=== PATIENT | female | born 1960 | race Caucasian/White ===

== ENCOUNTER → 2017-07-18 10:15 | Outpatient (CLI) | payer OTHER, SELFPAY ==
--- NOTE | 2017-07-18 | DI.MG.S_ITS ---
BILATERAL DIGITAL SCREENING MAMMOGRAM 3D/2D WITH CAD: 07/18/2017 CLINICAL: Routine screening. Family history of breast cancer. Comparison is made to exams dated: 05/23/2016 mammogram, 05/22/2015 mammogram, and 04/10/2014 mammogram - [facility]. The tissue of both breasts is heterogeneously dense. This may lower the sensitivity of mammography. Current study was also evaluated with a Computer Aided Detection (CAD) system. There is a benign cyst in the right breast. There also is a biopsy clip in the right breast. Additionally, there are post operative findings in the left breast. No significant masses, calcifications, or other findings are seen in either breast. There has been no significant interval change. IMPRESSION: BENIGN There is no mammographic evidence of malignancy. A 1 year screening mammogram is recommended. This exam was interpreted at Station ID: [id number]. NOTE: For mammograms, a report in lay terms will be sent to the patient. Approximately 15% of breast malignancies will not be visualized mammographically. In the management of a palpable breast mass, a negative mammogram must not discourage biopsy of a clinically suspicious lesion. Electronically Signed By: Pamela lopez/magan:07/18/2017 12:34:55 letter sent: Normal Exam ACR BI-RADS Category 2: Benign Finding(s) 3342F
== END ==
PROVIDERS: Family Provider Family Medicine; PCP Family Medicine; Visit Provider Family Medicine
DX: Z12.31 Encounter for screening mammogram for malignant neoplasm of breast (principal); Z80.3 Family history of malignant neoplasm of breast
CPT/HCPCS: 77063; 77067

== ENCOUNTER → 2018-09-24 14:09 | Outpatient (CLI) | payer OTHER, SELFPAY ==
--- NOTE | 2018-09-24 | DI.MG.S_ITS ---
BILATERAL DIGITAL SCREENING MAMMOGRAM 3D/2D WITH CAD: 09/24/2018 CLINICAL: Routine screening. Family history of breast cancer. Comparison is made to exams dated: 07/18/2017 mammogram, 05/23/2016 mammogram, and 05/22/2015 mammogram - [facility]. The tissue of both breasts is heterogeneously dense. This may lower the sensitivity of mammography. Current study was also evaluated with a Computer Aided Detection (CAD) system. There are benign post operative findings in the left breast. There also is a benign biopsy clip in the right breast. No significant masses, calcifications, or other findings are seen in either breast. There has been no significant interval change. IMPRESSION: There is no mammographic evidence of malignancy. A 1 year screening mammogram is recommended. This exam was interpreted at Station ID: [id number]. NOTE: For mammograms, a report in lay terms will be sent to the patient. Approximately 15% of breast malignancies will not be visualized mammographically. In the management of a palpable breast mass, a negative mammogram must not discourage biopsy of a clinically suspicious lesion. Electronically Signed By: Pamela lopez/magan:09/24/2018 17:04:58 letter sent: Normal Exam ACR BI-RADS Category 2: Benign Finding(s) 3342F
== END ==
PROVIDERS: PCP Family Medicine; Visit Provider Family Medicine
DX: Z12.31 Encounter for screening mammogram for malignant neoplasm of breast (principal); Z80.3 Family history of malignant neoplasm of breast
CPT/HCPCS: 77063; 77067

== ENCOUNTER → 2019-09-30 12:22 | Outpatient (CLI) | payer OTHER, SELFPAY ==
--- NOTE | 2019-09-30 | DI.MG.S_ITS ---
BILATERAL DIGITAL SCREENING MAMMOGRAM 3D/2D WITH CAD: 09/30/2019 CLINICAL: Family history of breast cancer. Routine screening. Comparison is made to exams dated: 09/24/2018 mammogram, 07/18/2017 mammogram, and 05/23/2016 mammogram - [facility]. The tissue of both breasts is heterogeneously dense. This may lower the sensitivity of mammography. Current study was also evaluated with a Computer Aided Detection (CAD) system. There are benign calcifications in both breasts. There also is a biopsy clip in the right breast. Additionally, there are benign post operative findings in the left breast. No significant masses, calcifications, or other findings are seen in either breast. There has been no significant interval change. IMPRESSION: BENIGN There is no mammographic evidence of malignancy. A 1 year screening mammogram is recommended. This exam was interpreted at Station ID: [id number]. NOTE: For mammograms, a report in lay terms will be sent to the patient. Approximately 15% of breast malignancies will not be visualized mammographically. In the management of a palpable breast mass, a negative mammogram must not discourage biopsy of a clinically suspicious lesion. Electronically Signed By: William carlos/magan:09/30/2019 17:20:54 letter sent: Normal Exam ACR BI-RADS Category 2: Benign Finding(s) 3342F
== END ==
PROVIDERS: PCP Family Medicine; Referring Provider Family Medicine; Visit Provider Family Medicine
DX: Z12.31 Encounter for screening mammogram for malignant neoplasm of breast (principal); Z80.3 Family history of malignant neoplasm of breast
CPT/HCPCS: 77063; 77067

== ENCOUNTER → 2020-03-03 10:51 | Outpatient (CLI) | payer OTHER, SELFPAY ==
--- NOTE | 2020-03-03 | DI.RAD.S_ITS ---
PROCEDURE: XR LUMBAR SPINE 2-3V INDICATIONS: Radiculopathy, lumbar region TECHNIQUE: 3 views of the lumbar spine were acquired. COMPARISON: None. FINDINGS: Bones: 5 [id number] vertebrae are present. There is normal bony alignment. No vertebral body compression fractures. No suspicious bony lesions. Soft tissues: Overlying bowel gas pattern is normal. No suspicious soft tissue calcifications. IMPRESSION: No significant degenerative change is found. No trauma seen. Dictated by: Quique Malhotra M.D. on 03/03/2020 at 12:14 Approved by: Quique Malhotra M.D. on 03/03/2020 at 12:14
== END ==
PROVIDERS: PCP Family Medicine; Referring Provider Family Medicine; Visit Provider Family Medicine
DX: M54.16 Radiculopathy, lumbar region (principal)
CPT/HCPCS: 72100

== ENCOUNTER → 2020-09-14 07:54 | Outpatient (CLI) | payer OTHER, SELFPAY ==
--- NOTE | 2020-09-14 | DI.US.S_ITS ---
PROCEDURE: US PELVIC COMPLETE INDICATIONS: DUB TECHNIQUE: Real-time scanning was performed of the pelvic organs, with image documentation. Additional endovaginal scanning was necessary due to incomplete visualization of the adnexal and endometrial structures by transabdominal scanning. COMPARISON: [facility], , PELVIC COMPLETE, 08/17/2012, 9:17. FINDINGS: Uterus: Uterus is normal in size at 8.3 x 4.0 x 6.9 cm. The endometrium measures 15 mm in combined thickness. Ovaries: Ovaries not identified. No adnexal masses seen. Other: No pathologic free abdominal or pelvic fluid. IMPRESSION: Endometrial complex upper limits of normal in thickness for a premenopausal female. Recommend clinical correlation and follow-up if indicated. Dictated by: Rafael LINCOLN Interpreted: Quique Malhotra MD on 09/16/2020 at 10:46 Transcribed by: GAUTAM on 09/16/2020 at 10:47 Approved by: Quique Malhotra M.D. on 09/16/2020 at 11:33
== END ==
PROVIDERS: PCP Family Medicine; Referring Provider Family Medicine; Visit Provider Family Medicine
DX: N92.1 Excessive and frequent menstruation with irregular cycle (principal)
CPT/HCPCS: 76830; 76856

== ENCOUNTER → 2020-10-31 12:30 | Outpatient (CLI) | payer OTHER, SELFPAY ==
--- NOTE | 2020-10-31 12:32 | DI.MG.S_ITS ---
BILATERAL DIGITAL SCREENING MAMMOGRAM 3D/2D WITH CAD: 10/31/2020 CLINICAL: Routine screening. Family history of breast cancer. Comparison is made to exams dated: 09/30/2019 mammogram, 09/24/2018 mammogram, and 07/18/2017 mammogram - [facility]. The tissue of both breasts is heterogeneously dense. This may lower the sensitivity of mammography. Current study was also evaluated with a Computer Aided Detection (CAD) system. There are benign calcifications in both breasts. There also is a biopsy clip in the right breast. Additionally, there are benign post operative findings in the left breast. There is a 1.7 cm round asymmetry with a circumscribed margin in the right breast central to the nipple middle depth. This is increased in size. No other significant masses, calcifications, or other findings are seen in either breast. IMPRESSION: INCOMPLETE: NEEDS ADDITIONAL IMAGING EVALUATION The 1.7 cm round asymmetry in the right breast most likely is a cyst but is significantly larger compared to last year's mammogram and therefore an ultrasound is recommended to confirm that it is a cyst and there are no associated concerning findings. This exam was interpreted at Station ID: [id number]. NOTE: For mammograms, a report in lay terms will be sent to the patient. Approximately 15% of breast malignancies will not be visualized mammographically. In the management of a palpable breast mass, a negative mammogram must not discourage biopsy of a clinically suspicious lesion. Electronically Signed By: Gregory Herbert acr/:11/02/2020 07:59:30 Entry: - 11/02/2020 09:20:50 letter sent: Need Ultrasound ACR BI-RADS Category 0: Incomplete 3340F
== END ==
PROVIDERS: PCP Family Medicine; Referring Provider Family Medicine; Visit Provider Family Medicine
DX: Z12.31 Encounter for screening mammogram for malignant neoplasm of breast (principal); Z80.3 Family history of malignant neoplasm of breast
CPT/HCPCS: 77063; 77067

== ENCOUNTER → 2020-11-19 12:19 | Outpatient (CLI) | payer OTHER, SELFPAY ==
--- NOTE | 2020-11-19 | DI.RAD.S_ITS ---
PROCEDURE: XR FOOT LT MIN 3V INDICATIONS: LEFT FOOT PAIN TECHNIQUE: 3 views of the foot were acquired. COMPARISON: [facility], , FOOT 3V RIGHT, 12/18/2006, 17:07. FINDINGS: Bones: No fractures or dislocations. No suspicious bony lesions. Minimal scattered IP narrowing. Minimal calcaneal spur. Soft tissues: No tibiotalar joint effusion. Achilles tendon appears normal. IMPRESSION: Early degenerative change. Dictated by: Kati Cowan M.D. on 11/19/2020 at 15:16 Approved by: Kati Cowan M.D. on 11/19/2020 at 15:17
== END ==
PROVIDERS: PCP Family Medicine; Referring Provider Family Medicine; Visit Provider Family Medicine
DX: M79.672 Pain in left foot (principal)
CPT/HCPCS: 73630

== ENCOUNTER → 2020-11-23 12:32 | Outpatient (CLI) | payer OTHER, SELFPAY ==
--- NOTE | 2020-11-23 12:33 | DI.US.S_ITS ---
LIMITED ULTRASOUND OF RIGHT BREAST: 11/23/2020 CLINICAL: Patient returns today to evaluate a focal asymmetry in the right breast. Comparison is made to exams dated: 10/31/2020 mammogram, 09/24/2018 mammogram, 09/30/2019 mammogram, 07/18/2017 mammogram, 05/23/2016 mammogram, and 05/22/2015 mammogram - [facility]. Ultrasound of the right breast retroareolar was performed. There is a benign 1.7 cm simple cyst in the right breast central to the nipple middle depth. No suspicious abnormality seen sonographically in the right breast. IMPRESSION: BENIGN There is no sonographic evidence of malignancy. The 1.7 cm simple cyst in the right breast is benign. Return to annual mammogram screening schedule is recommended. This exam was interpreted at Station ID: [id number]. Electronically Signed By: Samuel Bullock M.D. jr/:11/23/2020 13:18:13 letter sent: Normal Exam Ultrasound BI-RADS: 2 Benign
== END ==
PROVIDERS: PCP Family Medicine; Referring Provider Family Medicine; Visit Provider Family Medicine
DX: N60.01 Solitary cyst of right breast (principal); R92.8 Other abnormal and inconclusive findings on diagnostic imaging of breast
CPT/HCPCS: 76642

== ENCOUNTER → 2021-11-01 14:07 | Outpatient (CLI) | payer OTHER, SELFPAY | PROVIDERS: PCP Family Medicine; Referring Provider Family Medicine; Visit Provider Family Medicine | DX: M85.89 Other specified disorders of bone density and structure, multiple sites (principal); M81.0 Age-related osteoporosis without current pathological fracture | CPT/HCPCS: 77080 ==

== ENCOUNTER → 2021-11-08 15:03 | Outpatient (CLI) | payer OTHER, SELFPAY ==
--- NOTE | 2021-11-08 15:04 | DI.MG.S_ITS ---
BILATERAL DIGITAL SCREENING MAMMOGRAM 3D/2D WITH CAD: 11/08/2021 CLINICAL: Routine screening. Family history of breast cancer. Comparison is made to exams dated: 10/31/2020 mammogram, 09/30/2019 mammogram, 09/24/2018 mammogram, 11/23/2020 ultrasound, and 07/18/2017 mammogram - [facility]. Both breasts are heterogeneously dense, which may obscure small masses (category c / 51-75% glandular tissue). Current study was also evaluated with a Computer Aided Detection (CAD) system. There is a benign cyst in the right breast whish is slightly increased in size. There also are benign calcifications in both breasts. Additionally, there is a biopsy clip in the right breast. Additionally, there also are benign post operative findings in the left breast. No significant masses, calcifications, or other findings are seen in either breast. IMPRESSION: BENIGN There is no mammographic evidence of malignancy. A 1 year screening mammogram is recommended. Based on Tyrer-Cuzick model (a risk assessment model), the patient's lifetime risk is 37.5% and her 10 year risk is 16.0%. If a patient has an elevated risk, a more comprehensive evaluation should be considered and/or a referral to a genetic counselor. The [place] [employer], [place] [employer], and NCCN Guidelines advise the consideration of Breast MRI as an adjunct to screening mammography in patients whose Lifetime risk to develop breast cancer is 20% or higher. This exam was interpreted at Station ID: [id number]. NOTE: For mammograms, a report in lay terms will be sent to the patient. Approximately 15% of breast malignancies will not be visualized mammographically. In the management of a palpable breast mass, a negative mammogram must not discourage biopsy of a clinically suspicious lesion. Electronically Signed By: Artemio Pace M.D. slc/:11/10/2021 08:26:37 letter sent: Normal Exam ACR BI-RADS Category 2: Benign Finding(s) 3342F
== END ==
PROVIDERS: PCP Family Medicine; Referring Provider Family Medicine; Visit Provider Family Medicine
DX: Z12.31 Encounter for screening mammogram for malignant neoplasm of breast (principal); Z80.3 Family history of malignant neoplasm of breast
CPT/HCPCS: 77063; 77067

== ENCOUNTER → 2022-11-07 10:35 | Outpatient (CLI) | payer OTHER, SELFPAY ==
--- NOTE | 2022-11-07 | DI.RAD.S_ITS ---
Bone Density Report Name: MADISYN PACHECO Age: 61 Sex: Female Ethnicity: White Date of : 1960 Indication: osteopenia; Referring Provider: EUSEBIO MCHUGH Study: Bone densitometry was performed. Exam Date: November 07, 2022 Accession number: [id number] Bone Density: Region BMD T-score Z-score Classification AP Spine(L1-L4) 0.853 -1.8 -0.4 Osteopenia Femoral Neck (Left) 0.569 -2.5 -1.2 Osteoporosis Total Hip (Left) 0.729 -1.7 -0.8 Osteopenia Femoral Neck (Right) 0.559 -2.6 -1.3 Osteoporosis Total Hip (Right) 0.711 -1.9 -0.9 Osteopenia Total Hip Mean 0.720 -1.8 -0.9 Osteopenia World Health Organization criteria for BMD impression classify patients as: Normal (T-score at or above -1.0), Osteopenia (T-score between -1.0 and -2.5), or Osteoporosis (T-score at or below -2.5). 10-year Fracture Risk: FRAX not reported because: Some T-score for Spine Total or Hip Total or Femoral Neck at or below -2.5 Previous Exams: -- Region Exam Age BMD T-score BMD Change BMD Change Date g/cm2 vs Baseline vs Previous -- AP Spine (L1-L4) 11/07/2022 61 0.853 -1.8 -0.023 (-2.7%)* -0.023 (-2.7%)* 11/01/2021 60 0.876 -1.6 Total Hip(Left) 11/07/2022 61 0.729 -1.7 0.027 (3.8%) 0.027 (3.8%) 11/01/2021 60 0.702 -2.0 Total Hip(Right) 11/07/2022 61 0.711 -1.9 0.004 (0.5%) 0.004 (0.5%) 11/01/2021 60 0.708 -1.9 -- *Denotes significance at 95% confidence level, LSC for AP Spine = 0.022 g/cm2, LSC for Total Hip = 0.027 g/cm2 Impression: The patient has osteoporosis, based on the Right Femoral Neck T-score. The BMD for the AP Spine (L1-L4) decreased, changing by -2.7% since the last DXA exam. Discussion: INCREASED RISK OF FRACTURE. BONE DENSITY IS UNDESIRABLY LOW AT ONE OR MORE SKELETAL SITES, CONSISTENT WITH POSTMENOPAUSAL OSTEOPOROSIS. This patient's lowest T-score meets the World Health Organization's (WHO) criteria for osteoporosis at one or more sites (T-score -2.5 or below). In untreated patients, the risk of osteoporotic fracture increases approximately two-fold for each 1.0 SD decrease in T-score. Low bone density is not the only risk factor for fracture; also consider factors such as patient's age, frailty or poor health, risk of falling, risk of injury, previous osteoporotic fracture, family history of osteoporosis, cigarette smoking, low body weight, etc. Not everyone with low bone mineral density has osteoporosis; osteomalacia and other metabolic bone disorders should also be considered. Patients who have osteoporosis should be evaluated for specific diseases and conditions (secondary causes) that may cause or contribute to bone loss. The [place] [employer]ocrinologists (AACE) and National Osteoporosis Foundation (NOF) recommend pharmacologic intervention for all postmenopausal women whose T-score is in this range. The patient should follow a healthful lifestyle (good nutrition with adequate calcium and vitamin D, and appropriate weight-bearing exercise). Follow-Up: Consider a repeat BMD and Vertebral Fracture Assessment (VFA) exam in 2 years or sooner if medically necessary, to reassess this patient's status. Reported by: SALLIE BORDEN M.D on 11/07/2022 11:20:00 AM.
== END ==
PROVIDERS: PCP Family Medicine; Referring Provider Family Medicine; Visit Provider Family Medicine
DX: M81.0 Age-related osteoporosis without current pathological fracture (principal); Z78.0 Asymptomatic menopausal state
CPT/HCPCS: 77080

== ENCOUNTER → 2022-11-21 11:36 | Outpatient (CLI) | payer OTHER, SELFPAY ==
--- NOTE | 2022-11-21 | DI.MG.S_ITS ---
BILATERAL DIGITAL SCREENING MAMMOGRAM 3D/2D WITH CAD: 11/21/2022 CLINICAL: Routine screening. Family history of breast cancer. Comparison is made to exams dated: 11/08/2021 mammogram, 10/31/2020 mammogram, and 09/30/2019 mammogram - [facility]. Both breasts are heterogeneously dense, which may obscure small masses (category c / 51-75% glandular tissue). Current study was also evaluated with a Computer Aided Detection (CAD) system. There is a benign cyst in the right breast. There also are benign calcifications in both breasts. Additionally, there is a biopsy clip in the right breast. Additionally, there also are benign post operative findings in the left breast. No significant masses, calcifications, or other findings are seen in either breast. There has been no significant interval change. IMPRESSION: BENIGN There is no mammographic evidence of malignancy. A 1 year screening mammogram is recommended. Based on Tyrer-Cuzick model (a risk assessment model), the patient's lifetime risk is 37.7% and her 10 year risk is 16.8%. If a patient has an elevated risk, a more comprehensive evaluation should be considered and/or a referral to a genetic counselor. The [place] [employer], [employer], and NCCN Guidelines advise the consideration of Breast MRI as an adjunct to screening mammography in patients whose Lifetime risk to develop breast cancer is 20% or higher. This exam was interpreted at Station ID: [id number]. NOTE: For mammograms, a report in lay terms will be sent to the patient. Approximately 15% of breast malignancies will not be visualized mammographically. In the management of a palpable breast mass, a negative mammogram must not discourage biopsy of a clinically suspicious lesion. Electronically Signed By: Ivan castrejon/magan:11/21/2022 12:47:38 letter sent: Normal Exam ACR BI-RADS Category 2: Benign Finding(s) 3342D
== END ==
PROVIDERS: PCP Family Medicine; Referring Provider Family Medicine; Visit Provider Family Medicine
DX: Z12.31 Encounter for screening mammogram for malignant neoplasm of breast (principal); Z80.3 Family history of malignant neoplasm of breast
CPT/HCPCS: 77063; 77067

== ENCOUNTER → 2023-01-11 08:48 | Outpatient (CLI) | payer OTHER, SELFPAY ==
--- NOTE | 2023-01-11 | DI.US.S_ITS ---
LIMITED ULTRASOUND OF RIGHT BREAST: 01/11/2023 CLINICAL: Palpable right breast lump. Comparison is made to exams dated: 01/11/2023 mammogram, 11/21/2022 mammogram, 11/08/2021 mammogram, 11/23/2020 ultrasound, and 10/31/2020 mammogram - [facility]. Color flow and real-time ultrasound of the right breast 12-1 o'clock region were performed. Frazier scale images of the real-time examination were reviewed. There is a benign 1.8 cm x 1.7 cm x 1.5 cm oval simple cyst in the right breast at 1 o'clock anterior depth 1 cm from the nipple. This oval simple cyst is anechoic. This abnormality is increased in size and correlates as palpated and with mammography findings. Color flow imaging demonstrates that there is no vascularity present. There also is a benign 0.6 cm oval cyst in the right breast at 1 o'clock anterior depth 1 cm from the nipple. This oval cyst is anechoic. This abnormality is not significantly changed. Color flow imaging demonstrates that there is no vascularity present. IMPRESSION: BENIGN There is no sonographic evidence of malignancy. The 1.8 cm simple cyst in the right breast at 1 o'clock anterior depth is benign. The 0.6 cm simple cyst in the right breast at 1 o'clock anterior depth is benign. Exam findings were conveyed to the patient. Patient is advised to monitor for significant change. Clinical follow-up as needed. A 1 year screening mammogram is recommended. 11/22/2023 screening mammogram. This exam was interpreted at Station ID: [id number]. Electronically Signed By: Artemio Pace M.D. slc/:01/11/2023 09:48:43 letter sent: Normal Exam Ultrasound BI-RADS: 2 Benign
--- NOTE | 2023-01-11 | DI.MG.S_ITS ---
UNILATERAL RIGHT DIGITAL DIAGNOSTIC MAMMOGRAM 3D/2D: 01/11/2023 CLINICAL: Palpable right breast lump. Comparison is made to exams dated: 11/21/2022 mammogram, 11/08/2021 mammogram, 10/31/2020 mammogram, 11/23/2020 ultrasound, 09/30/2019 mammogram, and 09/24/2018 mammogram - [facility]. The right breast is heterogeneously dense, which may obscure small masses (category c / 51-75% glandular tissue). There is a stable oval mass in the right breast at 12 o'clock anterior depth. This likely correlates as palpated. No other significant masses or calcifications are seen in the breast. IMPRESSION: INCOMPLETE: NEEDS ADDITIONAL IMAGING EVALUATION The stable oval mass in the right breast is indeterminate. A targeted ultrasound is recommended and will immediately follow. Based on Tyrer-Cuzick model (a risk assessment model), the patient's lifetime risk is 37.7% and her 10 year risk is 16.8%. If a patient has an elevated risk, a more comprehensive evaluation should be considered and/or a referral to a genetic counselor. The [place] [employer], [employer] [employer], and NCCN Guidelines advise the consideration of Breast MRI as an adjunct to screening mammography in patients whose Lifetime risk to develop breast cancer is 20% or higher. This exam was interpreted at Station ID: [id number]. NOTE: For mammograms, a report in lay terms will be sent to the patient. Approximately 15% of breast malignancies will not be visualized mammographically. In the management of a palpable breast mass, a negative mammogram must not discourage biopsy of a clinically suspicious lesion. Electronically Signed By: Artemio Pace M.D. slc/:01/11/2023 09:31:23 ACR BI-RADS Category 0: Incomplete 3340F
== END ==
PROVIDERS: PCP Family Medicine; Referring Provider Family Medicine; Visit Provider Family Medicine
DX: R92.8 Other abnormal and inconclusive findings on diagnostic imaging of breast (principal); N60.01 Solitary cyst of right breast
CPT/HCPCS: 76642; 77065; G0279

== ENCOUNTER → 2023-08-14 13:42 | Outpatient (CLI) | payer OTHER, SELFPAY ==
--- NOTE | 2023-08-14 13:44 | DI.CT.S_ITS ---
PROCEDURE: CT KIDNEY URETER BLADDER (KUB) INDICATIONS: Calculus of kidney/ gross hematuria TECHNIQUE: Axial sections were acquired from the lung bases to the pubic symphysis. Coronal and sagittal reformats were performed. For radiation dose reduction, the following was used: automated exposure control, adjustment of mA and/or kV according to patient size. COMPARISON: None. FINDINGS: Image quality: Diagnostic. Lower Chest: No significant findings. URINARY: Right Kidney: Four nonobstructing intrarenal lower pole calculi. The largest measures 4 mm in greatest diameter. There is no hydronephrosis or contour deforming mass. Right Ureter: No hydroureter, ureteral calculus, or periureteric inflammation. Left Kidney: No intrarenal calculi, hydronephrosis, or contour deforming mass. Left Ureter: No hydroureter, ureteral calculus, or periureteric inflammation. Bladder: Normal wall thickness. No stones. ABDOMEN: Liver: 2.6 cm microlobulated cystic mass in segment six suggesting cyst or hemangioma. Subcentimeter cyst in segment two. No visible solid mass. Gallbladder: Dependent subcentimeter gallstone. Gallbladder is otherwise partially decompressed and has a normal CT appearance. Biliary ducts: No biliary dilation. Pancreas: Normal size and morphology without visible ductal dilatation or inflammation. Spleen: Size is within normal limits. Adrenal Glands: No adrenal nodules. Stomach and Bowel: Stomach and small bowel loops are normal caliber. Sigmoid colon diverticulosis. Normal appendix. Peritoneum: No free fluid or free air. Ventral Wall: No hernia. Abdominal Nodes: No enlarged retroperitoneal or mesenteric lymph nodes. Vessels: Aorta and inferior vena cava are normal in size. PELVIS: Pelvic Organs: Uterus and ovaries are normal. Pelvic Nodes: Unremarkable. Miscellaneous: No inguinal hernias are seen. Bones: Unremarkable. IMPRESSION: A few nonobstructing right lower pole intrarenal calculi. No evidence of obstructive uropathy. Benign low-density liver lesions. Sigmoid colon diverticulosis. Dictated by: Ghazala Payan M.D. on 08/14/2023 at 22:08 Approved by: Ghazala Payan M.D. on 08/14/2023 at 22:16
== END ==
PROVIDERS: PCP Family Medicine; Referring Provider Family Medicine; Visit Provider Family Medicine
DX: N20.0 Calculus of kidney (principal); K76.9 Liver disease, unspecified; K57.30 Diverticulosis of large intestine without perforation or abscess without bleeding
CPT/HCPCS: 74176

== ENCOUNTER → 2023-09-04 10:51 | Outpatient (CLI) | payer OTHER, SELFPAY ==
--- NOTE | 2023-09-04 | DI.RAD.S_ITS ---
PROCEDURE: XR ELBOW RT MIN 3V INDICATIONS: RIGHT ELBOW PAIN TECHNIQUE: 3 views of the elbow were acquired. COMPARISON: None. FINDINGS: Bones: No fractures or dislocations. No suspicious bony lesions. Soft tissues: No abnormally displaced fat pads of the elbow IMPRESSION: No acute bony abnormality or significant joint effusion. Dictated by: Cuauhtemoc Spangler M.D. on 09/04/2023 at 15:23 Approved by: Cuauhtemoc Spangler M.D. on 09/04/2023 at 15:23
== END ==
PROVIDERS: PCP Family Medicine; Referring Provider Registered Nurse; Visit Provider Registered Nurse
DX: M70.21 Olecranon bursitis, right elbow (principal)
CPT/HCPCS: 73080

== ENCOUNTER → 2023-11-27 15:24 | Outpatient (CLI) | payer OTHER, SELFPAY ==
--- NOTE | 2023-11-27 15:25 | DI.MG.S_ITS ---
BILATERAL DIGITAL SCREENING MAMMOGRAM 3D/2D WITH CAD: 11/27/2023 CLINICAL: Routine screening. Family history of breast cancer. Comparison is made to exams dated: 11/21/2022 mammogram, 11/08/2021 mammogram, and 10/31/2020 mammogram - [facility]. The breasts are heterogeneously dense, which may obscure small masses (category c / 51-75% glandular tissue). Current study was also evaluated with a Computer Aided Detection (CAD) system. There is a developing an irregular asymmetry with grouped dystrophic heterogeneous calcifications in the left breast at 4 o'clock middle depth. This is increased in number of calcifications. There also are grouped fine heterogeneous calcifications in the left breast at 11 o'clock posterior depth. These are increased in number of calcifications. No other significant masses, calcifications, or other findings are seen in either breast. IMPRESSION: INCOMPLETE: NEED ADDITIONAL IMAGING EVALUATION The developing irregular asymmetry in the left breast at 4 o'clock middle depth is indeterminate. Additional views with possible ultrasound are recommended. The grouped fine heterogeneous calcifications in the left breast at 11 o'clock posterior depth are indeterminate. Additional views with possible ultrasound are recommended. Based on Tyrer-Cuzick model (a risk assessment model), the patient's lifetime risk is 29.8% and her 10 year risk is 13.3%. If a patient has an elevated risk, a more comprehensive evaluation should be considered and/or a referral to a genetic counselor. The [place] [employer], [employer], and NCCN Guidelines advise the consideration of Breast MRI as an adjunct to screening mammography in patients whose Lifetime risk to develop breast cancer is 20% or higher. This exam was interpreted at Station ID: [id number]. NOTE: For mammograms, a report in lay terms will be sent to the patient. Approximately 15% of breast malignancies will not be visualized mammographically. In the management of a palpable breast mass, a negative mammogram must not discourage biopsy of a clinically suspicious lesion. Electronically Signed By: Ghazala daily/:11/28/2023 11:51:11 letter sent: Additional Imaging Needed ACR BI-RADS Category 0: Incomplete: Need Additional Imaging Evaluation
== END ==
PROVIDERS: PCP Family Medicine; Referring Provider Family Medicine; Visit Provider Family Medicine
DX: Z12.31 Encounter for screening mammogram for malignant neoplasm of breast (principal); Z80.3 Family history of malignant neoplasm of breast; R92.333 Mammographic heterogeneous density, bilateral breasts
CPT/HCPCS: 77063; 77067

== ENCOUNTER → 2024-01-01 13:12 | Outpatient (CLI) | payer OTHER, SELFPAY ==
--- NOTE | 2024-01-01 | DI.MG.S_ITS ---
UNILATERAL LEFT DIGITAL DIAGNOSTIC MAMMOGRAM 3D/2D WITH ADDITIONAL VIEWS: 01/01/2024 CLINICAL: Additional evaluation requested from prior study. Comparison is made to exams dated: 11/27/2023 mammogram, 11/21/2022 mammogram, 11/08/2021 mammogram, 01/11/2023 mammogram, 10/31/2020 mammogram, and 09/30/2019 mammogram - [facility]. The breasts are heterogeneously dense, which may obscure small masses (category c / 51-75% glandular tissue). There are stable post surgical changes in the left breast. There is an oval asymmetry with obscured margins measuring approximately 7 mm with associated dystrophic calcifications in the lower outer quadrant at 4 o'clock middle depth. This finding corresponds to finding seen on recent screening mammogram. There are similar appearing grouped dystrophic calcifications at 9 o'clock posterior depth spanning 6 mm. This finding corresponds to previously described calcifications at 11 o'clock position on recent screening mammogram. No other significant masses, calcifications, or other findings are seen in the breast. IMPRESSION: INCOMPLETE: NEED ADDITIONAL IMAGING EVALUATION 1) Left breast 7 mm focal asymmetry with associated calcifications at 4 o'clock position. An ultrasound is recommended for further evaluation and is scheduled to immediately follow this examination. 2) Left breast 6 mm grouped dystrophic calcifications at 9 o'clock posterior depth. Defer management pending left breast ultrasound. Based on Tyrer-Cuzick model (a risk assessment model), the patient's lifetime risk is 29.8% and her 10 year risk is 13.3%. If a patient has an elevated risk, a more comprehensive evaluation should be considered and/or a referral to a genetic counselor. The [place] [employer], [employer] [place] [employer], and NCCN Guidelines advise the consideration of Breast MRI as an adjunct to screening mammography in patients whose Lifetime risk to develop breast cancer is 20% or higher. This exam was interpreted at Station ID: [id number]. NOTE: For mammograms, a report in lay terms will be sent to the patient. Approximately 15% of breast malignancies will not be visualized mammographically. In the management of a palpable breast mass, a negative mammogram must not discourage biopsy of a clinically suspicious lesion. Electronically Signed By: Emily Olmos M.D., Ph.D. eb/:01/01/2024 14:54:54 letter sent: Additional Imaging Needed ACR BI-RADS Category 0: Incomplete: Need Additional Imaging Evaluation
--- NOTE | 2024-01-01 | DI.US.S_ITS ---
LIMITED ULTRASOUND OF LEFT BREAST: 01/01/2024 CLINICAL: Patient returns today to evaluate a focal asymmetry in the left breast. Comparison is made to exams dated: 01/01/2024 mammogram, 11/27/2023 mammogram, 11/21/2022 mammogram, 11/08/2021 mammogram, 10/31/2020 mammogram, and 09/30/2019 mammogram - [facility]. Color flow and real-time ultrasound of the left breast 4 o'clock region were performed. Frazier scale images of the real-time examination were reviewed. There is an oval hypoechoic mass with circumscribed margins at 4 o'clock, 4 cm from the nipple measuring 0.9 x 0.6 x 0.7 cm. Dystrophic calcifications are seen at the anterior aspect of the mass. Color-flow imaging demonstrates no vascularity is present. This finding corresponds to the mammographic finding. IMPRESSION: SUSPICIOUS 1) Left breast 0.9 cm oval circumscribed mass with dystrophic calcifications at 4 o'clock position. Finding likely represents a fibroadenoma and is at low suspicion for malignancy. Recommend ultrasound-guided core biopsy. 2) Left breast 0.6 cm group dystrophic calcifications at 9 o'clock posterior depth with similar morphology to the calcifications seen at 4 o'clock position. Defer management pending biopsy results. Findings and recommendations were discussed with the patient by Dr. Varela during today's examination. This exam was interpreted at Station ID: [id number]. Electronically Signed By: Emily Olmos M.D., Ph.D. eb/:01/01/2024 15:01:27 letter sent: Biopsy Required ACR BI-RADS Category 4A: Suspicious
== END ==
PROVIDERS: PCP Family Medicine; Referring Provider Family Medicine; Visit Provider Family Medicine
DX: R92.8 Other abnormal and inconclusive findings on diagnostic imaging of breast; R92.1 Mammographic calcification found on diagnostic imaging of breast; R92.333 Mammographic heterogeneous density, bilateral breasts; N63.23 Unspecified lump in the left breast, lower outer quadrant
CPT/HCPCS: 76642; 77065; G0279

== ENCOUNTER → 2024-01-26 | Outpatient (CLI) | payer OTHER, SELFPAY ==
--- NOTE | 2024-01-26 12:42 | DI.US.S_ITS ---
PROCEDURE: US BX BREAST PERC W VAC DEVICE COMPARISON: None. INDICATIONS: LUMP IN LEFT BREAST FINDINGS: The left breast mass previously identified under ultrasound was again seen at 4:00 a.m. 4 cm from the nipple and 4 passes were made from the deep edge of the mass with the biopsy notch facing the lesion on each pass. Following the biopsies the biopsy needle was removed and a biopsy clip marker was placed within the mass. IMPRESSION: Ultrasound-guided left breast mass biopsy and clip placement. Dictated by: Gene Estrada M.D. on 01/26/2024 at 16:18 Approved by: Gene Estrada M.D. on 01/26/2024 at 16:21
--- NOTE | 2024-01-26 12:43 | DI.MG.S_ITS ---
UNILATERAL LEFT DIGITAL DIAGNOSTIC MAMMOGRAM 3D/2D: 01/26/2024 CLINICAL: Left post clip placement. Comparison is made to exams dated: 01/01/2024 ultrasound, 01/01/2024 mammogram, and 11/27/2023 mammogram - [facility]. The breasts are heterogeneously dense, which may obscure small masses (category c / 51-75% glandular tissue). Post biopsy mammogram demonstrates biopsy clip approximately 3 mm posteromedial from the targeted mass. IMPRESSION: POST PROCEDURE MAMMOGRAM FOR MARKER PLACEMENT Post biopsy mammogram demonstrates biopsy clip approximately 3 mm posteromedial from the targeted mass. Please see separately dictated ultrasound guided biopsy report for additional details and pathology. Future imaging is recommended as follows: 07/27/2024 left mammogram and an ultrasound. Based on Tyrer-Cuzick model (a risk assessment model), the patient's lifetime risk is 29.8% and her 10 year risk is 13.3%. If a patient has an elevated risk, a more comprehensive evaluation should be considered and/or a referral to a genetic counselor. The [place] [employer], [employer], and NCCN Guidelines advise the consideration of Breast MRI as an adjunct to screening mammography in patients whose Lifetime risk to develop breast cancer is 20% or higher. This exam was interpreted at Station ID: [id number]. NOTE: For mammograms, a report in lay terms will be sent to the patient. Approximately 15% of breast malignancies will not be visualized mammographically. In the management of a palpable breast mass, a negative mammogram must not discourage biopsy of a clinically suspicious lesion. Electronically Signed By: Emily Olmos M.D., Ph.D. eb/:02/13/2024 09:30:11 ACR BI-RADS Category Post-Procedure Mammogram for Marker Placement
--- NOTE | 2024-01-26 14:13 | PATH_ITS ---
[facility] Accession Number: [id number] No. of containers..01 Tissue . 01 Material submitted: . breast - LT BREAST 4:00 4CMFN . 01 Clinical history: . LT BREAST 4:00, 4CMFN . 01 Diagnosis: LEFT BREAST AT 4 O'CLOCK 4 CM FROM NIPPLE: Benign breast parenchyma with usual ductal hyperplasia, stromal fibrosis, and mild dilatation of terminal ductules. Negative for in situ or invasive carcinoma. No definite calcifications identified. Please see comment. PEARL 01/30/2024 1641 Local . 01 Comment: No definite calcifications are identified in the biopsy tissue. Please correlate with clinical and imaging studies as this tissue may not be surgical device sales representative of the breast abnormality. . This case is also reviewed by Dr. Mani Hess, who agrees with the interpretation. . 01 Electronically signed: . Peyton Figueroa MD, Pathologist NPI- [id number] . 01 Gross description: . Received in formalin labeled with two patient identifiers and designated left breast 4 o'clock, and consists of four hunt-yellow, fibrofatty soft tissue cores aggregating to 1.5 x 1.0 x 0.2 cm. Entirely submitted in cassette A1. . The specimen was removed on 01/26/2024 at 1414 hours. Total fixation time is approximately 48 hours. ([id number]) /PEARL 01/27/2024 2043 Local . 01 Microscopic: . Immunohistochemical stains were performed to evaluate for block reactivity. The control stained with appropriate reactivity. . RESULTS: Block A1 E-cadherin: Positive in region of interest. CK5/6: Mosaic staining pattern in region of interest. ER: Variable staining in region of interest. . The immunohistochemistry findings mitigate against the presence of atypical lobular hyperplasia/lobular carcinoma in situ or solid ductal carcinoma in situ. These findings are most consistent with benign usual ductal hyperplasia. . * This test was developed and the performance characteristics were validated by [email or web address]. It has not been cleared or approved by the U.S. Food and Drug Administration. . 01 Pathologist provided ICD-10: R92.8 . 01 CPT . 887159, X24210, Q28418 Performed at: [address] [address], [place], [place] [id number] MD Gene Beckford MD Phone: [phone]
== END ==
PROVIDERS: PCP Family Medicine; Referring Provider Radiology Diagnostic Radiology; Visit Provider Radiology Diagnostic Radiology
DX: R92.8 Other abnormal and inconclusive findings on diagnostic imaging of breast (principal); N60.32 Fibrosclerosis of left breast; N60.42 Mammary duct ectasia of left breast; N62 Hypertrophy of breast; N63.23 Unspecified lump in the left breast, lower outer quadrant; R92.333 Mammographic heterogeneous density, bilateral breasts
CPT/HCPCS: 19083; 77065

== ENCOUNTER → 2024-04-01 | Outpatient (CLI) | payer OTHER, SELFPAY ==
--- NOTE | 2024-04-01 06:24 | DI.US.S_ITS ---
PROCEDURE: US RENAL DOPPLER INDICATIONS: RIGHT KIDNEY/ABDOMINAL BRUIT. HYPERTENSION TECHNIQUE: Real time scanning was performed of both kidneys, followed by Color and pulsed Doppler interrogation of the renal vessels. COMPARISON: None. FINDINGS: Aortic peak systolic velocity: 54.2 cm/s. Right side: Frazier-scale imaging: Kidney is 11.1 cm long. No hydronephrosis. No nephrolithiasis. Renal cortex is normal in echogenicity. No suspicious solid renal masses. Proximal renal artery peak systolic velocity: 77.7 cm/s. Mid renal artery peak systolic velocity: 266.8 cm/s. Distal renal artery peak systolic velocity: 117.8 cm/s. Renal vein: Patent, without thrombus. Peak renal/aortic ratio (RAR): 4.9, mid renal artery Resistive indices within the right kidney parenchyma are normal ranging from 0.56 to 0.63. Waveforms remain normal. Left side: Frazier-scale imaging: Kidney is 11.0 cm long. No hydronephrosis. No nephrolithiasis. Renal cortex is normal in echogenicity. No suspicious solid renal masses. Proximal renal artery peak systolic velocity: 159.9 cm/s. Mid-renal artery peak systolic velocity: 166.6 cm/s. Distal renal artery peak systolic velocity: 200.1 cm/s. Renal vein: Patent, without thrombus. Peak renal/aortic ratio (RAR): 3.7, distal renal artery Intraparenchymal resistive indices in the left kidney are normal ranging from 0.54-0.60. Waveforms remain normal. Incidental note made of nonobstructing, mobile gallstones measuring about 9 mm in greatest diameter. Septated simple hepatic cyst. IMPRESSION: Clinically significant, greater than 60%, stenosis of the mid right renal artery and distal left renal artery. Normal blood flow within each kidney. Dictated by: Ghazala Payan M.D. on 04/01/2024 at 11:54 Approved by: Ghazala Payan M.D. on 04/01/2024 at 12:02
== END ==
PROVIDERS: PCP Family Medicine; Referring Provider Family Medicine; Visit Provider Family Medicine
DX: I70.1 Atherosclerosis of renal artery (principal); K80.20 Calculus of gallbladder without cholecystitis without obstruction; K76.89 Other specified diseases of liver; R09.89 Other specified symptoms and signs involving the circulatory and respiratory systems
CPT/HCPCS: 93975

== ENCOUNTER → 2024-04-08 14:57 | Outpatient (CLI) | payer OTHER, SELFPAY ==
--- NOTE | 2024-04-08 14:58 | DI.MRI.S_ITS ---
PROCEDURE: MR ABDOMEN WO/W CON INDICATIONS: RENAL ARTERY STENOSIS TECHNIQUE: Coronal HASTE through abdomen and pelvis; axial 2D FLASH in- and [id number] (with and without fat saturation), and breath-hold T2 FSE from the hepatic dome to the bottom of the kidneys. Coronal HASTE MR urogram of kidneys and bladder. Dynamic coronal VIBE during IV gadolinium administration; postgadolinium axial VIBE or 2D FLASH with fat saturation from the hepatic dome through the kidneys. COMPARISON: , US, US RENAL DOPPLER, 04/01/2024, 7:18. , CT, CT KIDNEY URETER BLADDER (KUB), 08/14/2023, 13:55. FINDINGS: Image quality: Diagnostic. Lung bases: Left breast susceptibility artifact. Liver: No solid mass. A few small T2 hyperintense cysts. Gallbladder: Small gallstones. No wall thickening. Biliary ducts: No biliary dilation. Pancreas: No ductal dilation. Spleen: Size is within normal limits. Adrenal Glands: No adrenal nodules. Kidneys and Ureters: Kidneys enhance symmetrically. No hydronephrosis. No solid mass. No complex renal cystic lesion which requires follow up. A few small T2 hyperintense renal cysts. Stomach and Bowel: No dilated loops of bowel. Diverticulosis. Normal appendix. Peritoneum: No abnormal intraperitoneal fluid. Ventral Wall: No hernia. Abdominal Nodes: No retroperitoneal or mesenteric adenopathy by size criteria. Vessels: No aortic aneurysm. IVC is patent. Portal vein is patent. Renal arteries and veins are patent. Small nabothian cysts. Small sacral Tarlov cysts. Bones: No aggressive osseous abnormality. IMPRESSION: 1. No solid renal mass. A few small simple cysts. No hydronephrosis. 2. Small gallstones. No biliary or pancreatic ductal dilatation. Dictated by: Artemio Pace M.D. on 04/08/2024 at 16:17 Approved by: Artemio Pace M.D. on 04/08/2024 at 16:28
== END ==
PROVIDERS: PCP Family Medicine; Referring Provider Family Medicine; Visit Provider Family Medicine
DX: I70.1 Atherosclerosis of renal artery (principal); N28.1 Cyst of kidney, acquired; K80.20 Calculus of gallbladder without cholecystitis without obstruction; K76.89 Other specified diseases of liver; K57.90 Diverticulosis of intestine, part unspecified, without perforation or abscess without bleeding; N88.8 Other specified noninflammatory disorders of cervix uteri; G96.191 Perineural cyst
CPT/HCPCS: 74183; A9579

== ENCOUNTER → 2024-04-15 10:52 | Outpatient (CLI) | payer OTHER, SELFPAY ==
--- NOTE | 2024-04-15 10:54 | DI.MRI.S_ITS ---
PROCEDURE: MR ANGIO ABDOMEN WO/W CON INDICATIONS: RENAL ARTERY STENOSIS TECHNIQUE: Precontrast axial and coronal TruFISP through the abdomen. Dynamic coronal MRA using Care Bolus timing during the administration of contrast. Post-contrast axial VIBE through the kidneys. 3-dimensional maximum intensity projection (MIP) reformats constructed. COMPARISON: None. FINDINGS: Image quality: Excellent. Renal arteries: Single widely patent bilateral renal arteries. Abdominal aorta: Aorta is normal in caliber, and is patent. Mesenteric arteries: Celiac trunk, superior and inferior mesenteric arteries are widely patent. Extravascular soft tissues: Visualized solid organs appear normal in size on limited pre-contrast images. No retroperitoneal or mesenteric adenopathy by size criteria. Bowel loops are normal in caliber. No free fluid. No ventral hernias. Incidental note is made of a hepatic cyst and renal simple cysts. Bones: Marrow demonstrates normal overall signal. IMPRESSION: No evidence of renal artery stenosis. Dictated by: Gene Estrada M.D. on 04/16/2024 at 22:11 Approved by: Gene Estrada M.D. on 04/16/2024 at 22:15
== END ==
PROVIDERS: PCP Family Medicine; Referring Provider Family Medicine; Visit Provider Family Medicine
DX: I70.1 Atherosclerosis of renal artery (principal); N28.1 Cyst of kidney, acquired; K76.89 Other specified diseases of liver
CPT/HCPCS: C8902; A9579

== ENCOUNTER → 2024-04-15 15:52 | Outpatient (CLI) | payer OTHER, SELFPAY ==
--- NOTE | 2024-04-15 15:55 | DI.RAD.S_ITS ---
PROCEDURE: XR LUMBAR SPINE 2-3V INDICATIONS: BACK PAIN TECHNIQUE: 3 views of the lumbar spine were acquired. COMPARISON: [facility], CR, XR LUMBAR SPINE 2-3V, 03/03/2020, 11:09. FINDINGS: Bones: 5 [id number]-[id number] vertebrae are present. There is mild rightward curvature of thoracolumbar spine with apex at L1 level. Mild degenerative endplate changes are noted throughout lumbar spine more notably at L3-4 through L5-S1 levels. No vertebral body compression fractures. No suspicious bony lesions. Soft tissues: Overlying bowel gas pattern is normal. No suspicious soft tissue calcifications. IMPRESSION: Very mild rightward curvature of thoracolumbar spine with apex at L1 level. Very mild degenerative endplate changes throughout lumbar spine. No acute compression fracture or spondylolisthesis. Dictated by: Stephen Segovia M.D. on 04/15/2024 at 17:19 Approved by: Stephen Segovia M.D. on 04/15/2024 at 17:19
--- NOTE | 2024-04-15 15:55 | DI.RAD.S_ITS ---
PROCEDURE: XR KNEE LT 3V INDICATIONS: KNEE PAIN TECHNIQUE: 3 views of the knee were acquired. COMPARISON: None. FINDINGS: Bones: No fractures or dislocations. Mild tricompartmental osteoarthritis is seen with joint space narrowing and subchondral sclerosis. No significant patellar subluxation. No suspicious bony lesions. Soft tissues: No joint effusion. No suspicious soft tissue calcifications. IMPRESSION: No left knee fracture or dislocation. Mild tricompartmental osteoarthritis. No significant joint effusion. Dictated by: Stephen Segovia M.D. on 04/15/2024 at 17:20 Approved by: Stephen Segovia M.D. on 04/15/2024 at 17:21
--- NOTE | 2024-04-15 15:55 | DI.RAD.S_ITS ---
PROCEDURE: XR KNEE RT 3V INDICATIONS: KNEE PAIN TECHNIQUE: 3 views of the knee were acquired. COMPARISON: None. FINDINGS: Bones: No fractures or dislocations. Mild tricompartmental osteoarthritis is seen with joint space narrowing, subchondral sclerosis more notably in medial femoral tibial compartment. No significant patellar subluxation. No suspicious bony lesions. Soft tissues: No joint effusion. No suspicious soft tissue calcifications. IMPRESSION: No acute right knee fracture or dislocation. No significant joint effusion. Mild tricompartmental osteoarthritis. Dictated by: Stephen Segovia M.D. on 04/15/2024 at 17:19 Approved by: Stephen Segovia M.D. on 04/15/2024 at 17:20
== END ==
PROVIDERS: PCP Family Medicine; Referring Provider Family Medicine; Visit Provider Family Medicine
DX: M17.0 Bilateral primary osteoarthritis of knee (principal); M25.561 Pain in right knee; M25.562 Pain in left knee; M54.31 Sciatica, right side; I70.1 Atherosclerosis of renal artery; N28.1 Cyst of kidney, acquired; K76.89 Other specified diseases of liver; G89.29 Other chronic pain
CPT/HCPCS: 72100; 73562; C8902; A9579

== ENCOUNTER → 2024-07-16 07:42 | Outpatient (CLI) | payer OTHER, SELFPAY ==
--- NOTE | 2024-07-16 07:44 | DI.US.S_ITS ---
PROCEDURE: US ABDOMEN LIMITED INDICATIONS: gall stones TECHNIQUE: Real-time scanning was performed of the abdominal and retroperitoneal organs, with image documentation. COMPARISON: None. FINDINGS: Liver: Liver is normal in size and homogeneous in echotexture. Liver measures 13.1 cm. Posterior right lobe simple cyst measuring 19 x 18 x 22 mm. Left lobe simple cyst measuring 9 x 6 x 9 mm. Gallbladder: 2 mobile gallstones are present. Gallbladder wall measures 0.9 mm. No pericholecystic fluid. Biliary ducts: Intrahepatic bile ducts are non-dilated. Extrahepatic bile duct caliber measures 4.7 mm mm. Normal is 6-7 mm or less in diameter, or 10 mm or less post-cholecystectomy. Pancreas: Visualized portions of the pancreas are sonographically normal. Miscellaneous: No free abdominal fluid. IMPRESSION: Cholelithiasis. No evidence of acute cholecystitis. Dictated by: Matty Chavez M.D. on 07/16/2024 at 10:00 Approved by: Matty Chavez M.D. on 07/16/2024 at 10:02
== END ==
PROVIDERS: PCP Family Medicine; Referring Provider Family Medicine; Visit Provider Family Medicine
DX: K80.20 Calculus of gallbladder without cholecystitis without obstruction (principal); K76.89 Other specified diseases of liver; R10.11 Right upper quadrant pain
CPT/HCPCS: 76705

== ENCOUNTER → 2024-08-05 12:06 | Outpatient (CLI) | payer OTHER, SELFPAY ==
--- NOTE | 2024-08-05 12:09 | DI.RAD.S_ITS ---
PROCEDURE: XR DEXA AXIAL SKELETON INDICATIONS: osteoporosis screening COMPARISON: [facility], CR, XR DEXA AXIAL SKELETON, 11/07/2022, 10:56. FINDINGS: Lumbar Spine: Bone mineral density 0.771 g/cm2, T score -2.5. There is interval 9.6% decrease in total lumbar spine bone mineral density. Left Femoral Neck: Bone mineral density 0.514 g/cm2, T score -3.0. There is interval 9.8% decrease in left femoral neck bone mineral density. Left Hip: Bone mineral density 0.645 g/cm2, T score -2.4. There is interval 11.6% decrease in left total hip bone mineral density. Fracture Risk Calculation (when applicable): 10-year fracture risk of a major osteoporotic fracture 22 percent and of a hip fracture 6.8 percent. (T score greater or equal to -1.0 to: NORMAL) (T score from -1.1 to -2.4: OSTEOPENIA) (T score less than or equal to -2.5: OSTEOPOROSIS) IMPRESSION: Osteoporosis. Follow-up guidelines as follows: Osteoporosis: Consider a repeat DEXA and Vertebral Fracture Assessment (VFA) exam in 2 years or sooner if medically necessary, to reassess this patient's status. Osteopenia: Consider a repeat DEXA in 2-3 years to reassess this patient's status, or if there is a new clinical indication. Normal: Consider a repeat DEXA in 5 years or sooner, or if there is a new clinical indication. All treatment decisions require clinical judgment and consideration of individual patient factors, including patient preferences, comorbidities, previous drug use, risk factors not captured in the FRAX model (e.g., frailty, falls, vitamin D deficiency, increased bone turnover, interval significant decline in bone density ) and possible under- or over-estimation of fracture risk by FRAX. In addition, the NOF Guide recommends that FDA-approved medical therapies be considered in postmenopausal women and men age >= 50 years with a: * Hip or vertebral (clinical or morphometric) fracture * T-score of <=-2.5 at the spine or hip * Ten-year fracture probability by FRAX of >= 3% for hip fracture or >=20% for major osteoporotic fracture. Dictated by: Stephen Segovia M.D. on 08/05/2024 at 20:44 Approved by: Stephen Segovia M.D. on 08/05/2024 at 20:45
== END ==
PROVIDERS: PCP Family Medicine; Referring Provider Family Medicine; Visit Provider Family Medicine
DX: M81.0 Age-related osteoporosis without current pathological fracture (principal)
CPT/HCPCS: 77080

== ENCOUNTER 2024-08-09 07:24 | Day surgery (SDC) | payer OTHER, SELFPAY ==
[2024-08-09] VITALS (11 sets, daily range): BP systolic 129–161; BP diastolic 55–88; PULSE 67–90; RESP 15–26; TEMP 36.4–36.9; O2SAT 95–99; BMI 22.9
--- NOTE | 2024-08-09 | PATH_ITS ---
[facility] Accession Number: [id number] No. of containers..01 Tissue . 01 Material submitted: . gallbladder - GALLBLADDER . 01 Diagnosis: GALLBLADDER, CHOLECYSTECTOMY: Cholelithiasis with cholesterolosis. No evidence of neoplasm. MRV 08/16/2024 1616 Local . 01 Electronically signed: . Parrish Soliz MD, PhD, Pathologist NPI- [id number] . 01 Gross description: . The specimen is received in formalin, labeled with two patient identifiers and gallbladder, and consists of an 8.0 x 3.2 x 2.5 cm, unopened gallbladder. The serosal surface is hunt-green with slightly congested serosal vessels, and is otherwise smooth and glistening. There is a 0.4 x 0.3 cm, probe-patent cystic duct which has a white clip. The cystic duct is inked, and the specimen is opened to show a gallbladder wall that is uniformly thick at 0.1 cm. The mucosa is finely granular, green, and speckled yellow. The gallbladder is filled with a 1.0 cm in greatest dimension aggregate of black, irregular, crushable gallstones admixed with approximately 60 mL of green, viscous bile. Motor Driver sections are submitted in cassette A1 to include cystic duct. ([id number]) /FRR 08/10/2024 1056 Local . 01 Pathologist provided ICD-10: K80.70 . 01 CPT . 358992 Specimen Comment: A courtesy copy of this report has been sent to [facility] Pathology Performed at: [address] [facility], [place], [place] [id number] MD Gene Beckford MD Phone: [phone]
--- NOTE | 2024-08-09 | DI.RAD.S_ITS ---
PROCEDURE: XR CHOLANGIOGRAM OPERATIVE INDICATIONS: DALJIT COMPARISON: None. FINDINGS: Biliary ducts: The surgeon injected contrast into the biliary ducts after cannulation of the cystic duct stump. Visualized intra- and extrahepatic bile ducts are normal in caliber, without strictures. No intraluminal filling defects to suggest retained ductal stones or sludge. No evidence for iatrogenic ductal injury. Duodenum: Contrast flows promptly through the sphincter of Oddi into the duodenum, which appears normal in caliber. IMPRESSION: Normal operative cholangiogram. Dictated by: Quique Malhotra M.D. on 08/09/2024 at 15:35 Approved by: Quique Malhotra M.D. on 08/09/2024 at 15:37
[2024-08-09] MEDS: LACTATED RINGERS 1,000 ML 42 ML IV ×2 (08:21→10:33)
[2024-08-09] MEDS: ACETAMINOPHEN 325 MG TABLET 975 MG PO (08:21)
--- NOTE | 2024-08-09 08:45 | PM.PREOP ---
Pre-operative Note Interval Note History & Physical reviewed/Exam performed by Physician: Yes Changes to H&P: No ASA Class (for procedural sedation): I
[2024-08-09] MEDS: CEFAZOLIN 2 GM/100 ML PREMIX 100 ML IV (09:01)
[2024-08-09] MEDS: BUPIVACAINE 0.25% W/ EPI 30 ML VIAL 60 ML INJ (09:15)
--- NOTE | 2024-08-09 09:18 | SUR.OPER ---
Supine on padded OR bed, head on pillow, safety belt at thigh, left arm padded and tucked at side. Right arm secured on padded arm board <90 degrees abduction. Legs uncrossed. Padded footboard in place. Tape over blanket to secure lower legs.
[2024-08-09] MEDS: iopamidoL 30 ML VIAL INJ (09:40)
--- NOTE | 2024-08-09 10:10 | PM.OP.1 ---
Operative Date/Time/Diagnoses Date of procedure: 08/09/24 Time of procedure: 10:10 Pre-op diagnosis: Symptomatic cholelithiasis, cholecystitis Post-op diagnosis: same Procedure & Clinicians Procedure: Laparoscopic cholecystectomy, intra-operative cholangiogram Same procedure(s) as scheduled: Yes Indications: 63yo F, h/o symptomatic cholelithiasis, cholecystitis. Surgeon: Marcin العلي Alternative Education Teacher: Robin Sorto Anesthesia Type: General Operative Notes Findings: Routine gallbladder, cholesterolosis, no omental adhesions, normal cholangiogram Closure Type: primary Specimen(s): other (gallbladder) Applied: none Estimated Blood Loss (mL): 5 Blood products transfused: none Procedure in detail: Preoperative diagnosis: ?Symptomatic cholelithiasis with cholecystitis Postoperative diagnosis: Same Procedure: ?Laparoscopic cholecystectomy with intraoperative cholangiogram Surgeon: ?Marcin العلي MD Alternative Education Teacher: Wm NORTH Anesthesia: General endotracheal Estimated blood loss: ?Minimal Complications: ?None Brief history: 63yo F, symptomatic cholelithiasis, cholecystitis. The risks, benefits and options were explained to her in detail. She understands and is agreeable to proceed. Findings: Routine gallbladder, cholesterolosis, no omental adhesions, normal cholangiogram Procedure: After informed consent and satisfactory general endotracheal anesthesia, the abdomen was prepped and draped in the usual sterile manner. ?Pneumoperitoneum was established utilizing the Joshi trocar direct cutdown technique. ?An infra-umbilical incision was made with an #11 blade knife. ?The subcutaneous tissues were bluntly with Army-Buckland retractors. ?The fascia was scored with cautery in the midline and the edges grasped and elevated with Arias clamps. ?An 0 Vicryl [id number] suture was placed in the fascia. ?The peritoneum was carefully opened with a Gosia clamp and an S retractor sweep was done to confirm we were in the peritoneal cavity. ?The Joshi trocar was inserted under direct vision and the abdomen was insufflated to a pressure of 15 mmHg with carbon dioxide gas. A 10mm 30-degree lens was inserted and no trauma secondar to trocar insertion was noted. The patient was placed in reverse Trendelenburg, [id number] position. ?Three 5 mm trocars were inserted via direct vision in the upper abdomen in a subcostal position from the epigastrium to the hypogastrium. ?The fundus of the gallbladder was grasped and retracted over the liver. ?The infundibulum of the gallbladder was grasped and retracted laterally for proper exposure of the cystic duct and artery. ?Hook cautery was used to score the peritoneum medial and lateral. ?The cystic duct was identified and skeletonized with blunt and hook cautery dissection. ?The cystic artery was similarly identified and skeletonized. ?Critical view of safety was achieved with 2 distinct structures entering the gallbladder with segment 5 of the liver visualized posteriorly. ?The cystic duct was controlled with a Hemolock clip next to the gallbladder and a ductotomy was made with laparoscopic Metzenbaum scissors. ?Via an Monet clamp, the cholangiogram catheter was inserted into the cystic duct and a cholangiogram was obtained. ?This demonstrated a normal left and right hepatic duct, common hepatic duct and distal common bile duct. Contrast flowed unobstructed into the duodenum. ?At this point, the cholangiogram catheter was removed and the cystic duct was clipped distal to the ductotomy. ?The cystic duct was then completely divided with Metzenbaum scissors. ?The cystic artery was similarly doubly clipped and divided with Metzenbaum scissors. ?At this point the gallbladder was from the liver using hook cautery. ?Hemostasis was excellent and no bile drainage from the liver edge was noted. ?The gallbladder was placed into an endo-pouch and removed. ?The liver bed, cystic duct and cystic artery were inspected and no bleeding or bile drainage were noted. ?With this, the trocars were removed under direct vision with no bleeding noted. ?The pneumoperitoneum was released. ?The 0-Vicryl eqergz-wo-akipi fascial suture was tied with no resulting fascial defect. ?The skin incisions were closed using 4-0 Monocryl in a subcuticular manner. ?Dermabond glue was applied as a final dressing. ?The estimated blood loss was minimal. ?The instrument, sponge and needle counts were all correct x2 at the end of the procedure. ?After reversal of general endotracheal anesthesia, the patient was transferred to the recovery room in stable condition. ? Complications: none Post-operative Condition: stable Disposition: PACU Plan for aftercare: F/U in office in two weeks Diet as tolerated Shower OK No lifting restrictions
[2024-08-09] MEDS: METOCLOPRAMIDE 10 MG/2 ML INJ IV (10:14)
[2024-08-09] MEDS: hydrOXYzine 50 MG/ML INJ 25 MG IM (10:14)
[2024-08-09] MEDS: ONDANSETRON 4 MG/2 ML INJ IV (10:36)
== END 2024-08-09 11:52 | disposition home or self-care (01) ==
PROVIDERS: PCP Family Medicine; Referring Provider Surgery; Visit Provider Surgery
PROC: 0FT44ZZ Resection of Gallbladder, Percutaneous Endoscopic Approach (ICD-10-PCS; CPT 47563; principal; 2024-08-09 09:15)
DX: K80.20 Calculus of gallbladder without cholecystitis without obstruction (principal)
CPT/HCPCS: 47563; 74300; J0330; J0690; J1100; J1885; J2250; J2405; J2704; J2765; J3010; J3410; J3490; Q9967

== ENCOUNTER → 2024-09-09 09:12 | Outpatient (CLI) | payer OTHER, SELFPAY ==
--- NOTE | 2024-09-09 09:13 | DI.US.S_ITS ---
MM diagnostic mammo unilat LT, US breast LT limited: 09/09/2024 BI-RADS: 3 CLINICAL: 63-year old female for left diagnostic mammogram and left diagnostic breast ultrasound that is a follow-up to diagnostic, left, digital, tomosynthesis on 01/26/2024. [facility] lifetime risk of 36.1%. Current reported family history of breast cancer: maternal grandmother, mother and maternal aunt. The patient had a prior left breast biopsy. PRIOR EXAMS 01/26/2024, 01/01/2024, 11/27/2023, 01/11/2023, 11/21/2022. MAMMOGRAPHY TECHNIQUE: 2D and 3D (tomosynthesis) digital mammographic views obtained, with additional images as needed for full coverage. Current study was also evaluated with a Computer Aided Detection (CAD) system. ULTRASOUND TECHNIQUE Real-time zelaya scale and color doppler imaging of the area of clinical interest was performed with image documentation. Left targeted breast ultrasound of the area of clinical interest and the axilla was performed with image documentation. DENSITY Left: C. The breast is heterogeneously dense, which may obscure small masses. MAMMOGRAPHY FINDINGS Left: Inner at 9:00, Posterior depth, measuring 0.5cm: There are probably-benign grouped dystrophic calcifications that are unchanged in size and appearance. Left: Central, Anterior depth, measuring 0.2cm: There are grouped punctate calcifications that are unchanged in size and appearance. Left (finding-1): Lower Outer at 4:00, Middle depth, measuring 0.7cm: Correlating with area of biopsy, there is a stable focal asymmetry present with associated calcifications. This is located adjacent to the patient's postsurgical changes. ULTRASOUND FINDINGS Left (finding-1): Lower Outer at 4:00, 4 cm from nipple, measuring 1 x 0.8 x 0.8 cm - previously measuring (01/01/2024) 0.9 x 0.6 x 0.7 cm: Correlating with area of biopsy and findings on mammogram there is a mass present. This finding appears similar allowing for difference in technique and post-biopsy changes. This is associated with benign pathology. IMPRESSION: Left (Calcification): Inner at 9:00, Posterior depth, measuring 0.5cm * Probably Benign. Left (Calcification): Central, Anterior depth, measuring 0.2cm * Probably Benign. RECOMMENDATIONS Left: Inner at 9:00, Posterior depth * Six month followup with diagnostic mammography. When the patient returns for short-term unilateral followup, a mammogram for the contralateral breast will also be due. Left: Central, Anterior depth * Six month followup with diagnostic mammography. When the patient returns for short-term unilateral followup, a mammogram for the contralateral breast will also be due. COMMENTS: Findings and recommendations were conveyed to the patient during today's evaluation. In addition, this patient has an elevated lifetime risk for breast cancer of over 20%. Recommend consideration for annual screening breast MRI as an adjunct to screening mammography. OVERALL ASSESSMENT CATEGORY BI-RADS-3: Probably Benign. ELECTRONICALLY SIGNED: Elba Zee M.D. on 09/09/2024 at 02:51:56 PM PT Interpreting Station ID: [id number]
== END ==
LOC: MAMMO 09:12
PROVIDERS: PCP Family Medicine; Referring Provider Family Medicine; Visit Provider Family Medicine
DX: R92.1 Mammographic calcification found on diagnostic imaging of breast (principal); N63.23 Unspecified lump in the left breast, lower outer quadrant; R92.332 Mammographic heterogeneous density, left breast; Z80.3 Family history of malignant neoplasm of breast
CPT/HCPCS: 76642; 77065; G0279

== ENCOUNTER 2025-01-20 09:43 | Day surgery (SDC) | payer OTHER, SELFPAY ==
[2025-01-06 10:47] VITALS: BMI 23.3
[2025-01-20 10:23] VITALS: BP 160/84; PULSE 102; RESP 16; TEMP 36.2; O2SAT 98
[2025-01-20] MEDS: LACTATED RINGERS 1,000 ML 42 ML IV (10:34)
--- NOTE | 2025-01-20 10:45 | PM.HP.IH.1 ---
History of Present Illness History of Present Illness Date Patient Seen: 01/20/25 Chief complaint: SDC Narrative: Ten year follow-up colonoscopy [facility] Medical History (Updated 01/06/25 @ 10:39 by Keli Parnell, RN) White coat syndrome with hypertension Fibrocystic breast disease Mass of right breast Mixed hyperlipidemia GERD (gastroesophageal reflux disease) Osteoporosis Surgical History (Updated 01/06/25 @ 10:32 by Keli Parnell, RN) Hx of cholecystectomy (08/09/24) Family History (Updated 01/06/25 @ 10:46 by Keli Parnell RN) Other Breast cancer Family history of BRCA gene mutation Social History Smoking Status: Never smoker alcohol intake: current Meds Home Medications and Allergies Home Medications ?Medication ?Instructions ?Recorded ?Confirmed ?Type antiarthritic combination no.2 900 mg PO 07/31/24 08/21/24 History mg tablet (glucosamine-chondroitin) ascorbate calcium (vitamin C) 500 500 mg PO DAILY 07/31/24 08/21/24 History mg tablet calcium carbonate 500 mg PO DAILY 07/31/24 08/21/24 History cholecalciferol (vitamin D3) 50 50 mcg PO DAILY 07/31/24 08/21/24 History mcg (2,000 unit) capsule estradiol 10 mcg vaginal tablet 10 mcg vaginal 3XW 07/31/24 08/21/24 History (Yuvafem) fluticasone propionate 110 1 puff inhalation Q12H 07/31/24 08/21/24 History mcg/actuation HFA aerosol inhaler nitrofurantoin 1 cap PO BID 07/31/24 08/21/24 History monohydrate/macrocrystals 100 mg capsule turmeric PO 07/31/24 08/21/24 History vitamin B complex 1 tab PO DAILY 07/31/24 08/21/24 History cetirizine 10 mg tablet (24Hour 10 mg PO DAILY PRN allergy symptoms 08/09/24 08/21/24 History Allergy) hydrocodone 5 mg-acetaminophen 325 1 - 2 tab PO Q4-6H PRN pain #20 08/09/24 08/21/24 Rx mg tablet tabs promethazine 25 mg tablet 25 mg PO Q4-6H PRN nausea #10 tabs 08/09/24 08/21/24 Rx peg 3350-electrolytes 236 240 ml PO Q10M #4,000 mL 12/13/24 Rx gram-22.74 gram-6.74 gram-5.86 gram solution (Golytely) omeprazole 20 mg capsule,delayed 20 mg PO DAILY 01/06/25 01/06/25 History release Allergies Allergy/AdvReac Type Severity Reaction Status Date / Time No Known Drug Allergies Allergy Verified 08/21/24 13:50 Exam Vital Signs (past 8 hours): - 01/20/25 10:23 Temperature 97.2 F L Pulse Rate 102 H Respiratory Rate 16 Blood Pressure 160/84 H Pulse Oximetry 98 Oxygen Delivery Method Room Air Oxygen Delivery Method Room Air Objective Labs Labs: Oropharynx free of lesions Chest clear to auscultation percussion Cardiac exam reveals no S3 or murmur Assessment & Plan Assessment & Plan narrative: 10 year follow-up colonoscopy. Risks, benefits, alternatives have been Time-Based Coding :: [TOTAL MINUTES] spent with patient and on the chart (including review of chart, obtaining history, exam, reviewing outside data, placing orders, documenting exam and treatment plan, and counseling patient) on [DATE]. PROFEE Outside Upholsterer Document charge(s): No
--- NOTE | 2025-01-20 10:46 | PM.OP.COLON ---
Operative Date/Time/Diagnoses Date of procedure: 01/20/25 Time of procedure: 10:47 Pre-op diagnosis: See indication Post-op diagnosis: same Procedure & Clinicians Study performed: Colonoscopy Same procedure(s) as scheduled: Yes Indications: Ten year follow-up colonoscopy for colorectal cancer screening Surgeon: Rea Lorenz Anesthesia Type: None Procedure Notes Procedure in detail: After informed consent was obtained the patient was placed in left lateral decubitus position. The video colonoscope was introduced the rectum slowly advanced to the cecum. Preparation was good. On slow withdrawal mucosa carefully examined. The scope was removed. The patient tolerated procedure well. Blood loss none Complications none Sedation mac Findings 1. Very tortuous sigmoid colon but otherwise negative colonoscopy to cecum. Patient should have follow-up colonoscopy in 10 years Estimated Blood Loss: 0 Complications: none
[2025-01-20 11:54] VITALS: BP 131/69; PULSE 78; RESP 18; TEMP 36.2; O2SAT 97
[2025-01-20 12:00] VITALS: BP 138/72; PULSE 87; RESP 18; TEMP 36.2; O2SAT 97
== END 2025-01-20 12:23 | disposition home or self-care (01) ==
PROVIDERS: Internal Medicine Gastroenterology; PCP Family Medicine; Referring Provider Family Medicine; Visit Provider Surgery
PROC: 0DJD8ZZ Inspection of Lower Intestinal Tract, Via Natural or Artificial Opening Endoscopic (ICD-10-PCS; CPT 45378; principal; 2025-01-20 11:00)
DX: Z12.11 Encounter for screening for malignant neoplasm of colon (principal)
CPT/HCPCS: 45378; J2704; J7120